=== PATIENT | female | born 1970 | race Caucasian/White ===

== ENCOUNTER 2017-06-15 14:20 | Emergency (ER) | payer OTHER ==
[~2017-06-15] VITALS: Ht 167.6 cm; Wt 83.9 kg
[2017-06-15] MEDS ORDERED: PREDNISONE 20 M20 MG PO (15:40)
[2017-06-15 15:45] VITALS: BP 113/59
== END 2017-06-15 15:45 | disposition home or self-care (01) ==
LOC: M.ERS 14:20
DX: L50.9 Urticaria, unspecified (principal); T36.0X5A Adverse effect of penicillins, initial encounter; F17.200 Nicotine dependence, unspecified, uncomplicated; Z88.1 Allergy status to other antibiotic agents; Y92.89 Other specified places as the place of occurrence of the external cause